=== PATIENT | male | born 1970 | race Caucasian/White ===

== ENCOUNTER 2018-04-24 18:55 | Emergency (ER) | payer SELFPAY ==
[2018-04-24 19:00] VITALS: BP 135/107
[2018-04-24] MEDS ORDERED: RINGERS SOLUTION,LACTATED 1,000 ML IV ONE (19:22)
[2018-04-24] MEDS ORDERED: NORMAL SALINE 1000 ML 1,000 ML IV PRN ×2 (19:22→22:13)
[2018-04-24] MEDS ORDERED: ONDANSETRON HCL INJ/PF 4 MG/2 ML SDV IV ONE (19:25)
--- NOTE | 2018-04-24 19:25 | ER Document Report ---
ED Medical Screen (RME) - General Chief Complaint: Pain All Over Stated Complaint: BODY CRAMPING Time Seen by Provider: 04/24/18 19:17 Notes: 47 years old male was working the whole day out in the sun sweating, drank only 2 times, towards the end of the work started having nausea vomited once all the fluid that he drank. Developed diffuse muscle aches and cramps shivering therefore came to the ED. Denies any dizziness denies any focal weakness. Denies any chest pain or shortness of breath. Diffuse abdominal cramp but denies any diarrhea dysuria frequency. TRAVEL OUTSIDE OF THE [place] IN LAST 30 DAYS: No - Related Data Allergies/Adverse Reactions: No Known Allergies Allergy (Unverified 04/24/18 18:57) Physical Exam - Vital signs Vitals: Temp Pulse Resp BP Pulse Ox 98.2 F 82 20 135/107 H 99 04/24/18 18:58 04/24/18 18:58 04/24/18 18:58 04/24/18 18:58 04/24/18 18:58 Course - Vital Signs Vital signs: Temp Pulse Resp BP Pulse Ox 98.2 F 82 20 135/107 H 99 04/24/18 18:58 04/24/18 18:58 04/24/18 18:58 04/24/18 18:58 04/24/18 18:58 Doctor's Discharge - Discharge Referrals: LOCALMD,NO [Primary Care Provider] - Follow up as needed
[2018-04-24 19:49] LABS: ABSOLUTE BASOPHILS # (AUTO) 0.1 10^3/uL (0.0-0.2); ABSOLUTE EOSINOPHILS # (AUTO) 0.1 10^3/uL (0.0-0.6); ABSOLUTE LYMPHOCYTES (AUTO) 2.6 10^3/uL (0.5-4.7); ABSOLUTE NEUT (AUTO) 11.7 10^3/uL (1.7-8.2); EOSINOPHILS % (AUTO) 0.4 % (0-6); HEMOGLOBIN 18.3 g/dL (13.5-17.0); LYMPHOCYTES % (AUTO) 16.9 % (13-45); MEAN CORPUSCULAR HEMOGLOBIN 32.6 pg (27.0-33.4); MEAN CORPUSCULAR HGB CONC 35.8 g/dL (32.0-36.0); MEAN CORPUSCULAR VOLUME 91 fl (80-97); MONOCYTES % (AUTO) 6.3 % (3-13); PLATELET COUNT 230 10^3/uL (150-450); RED CELL DISTRIBUTION WIDTH 13.2 % (11.5-14.0); SEGMENTED NEUTROPHILS % (AUTO) 75.4 % (42-78); TOTAL CELLS COUNTED % (AUTO) 100 %; WHITE BLOOD COUNT 15.5 10^3/uL (4.0-10.5)
[2018-04-24] MEDS ORDERED: KETOROLAC TROMETHAMINE INJ/PF 30 MG/1 ML SDV IV ONE (20:05)
[2018-04-24] MEDS ORDERED: FENTANYL CITRATE INJ/PF 100 MCG/2 ML AMPUL IV ONE (20:06)
[2018-04-24 20:13] LABS: ALANINE AMINOTRANSFERASE 30 U/L (21-72); ALKALINE PHOSPHATASE 102 U/L (38-126); ASPARTATE AMINO TRANSFERASE 49 U/L (17-59); BILIRUBIN,DIRECT 0.4 mg/dL (0.0-0.4); BILIRUBIN,TOTAL 1.2 mg/dL (0.2-1.3); BLOOD UREA NITROGEN 31 mg/dL (7-20); CHLORIDE 98 mmol/L (98-107); CREATINE KINASE 356 U/L (55-170); GLUCOSE 99 mg/dL (75-110); POTASSIUM 4.9 mmol/L (3.6-5.0); TOTAL PROTEIN 9.9 g/dL (6.3-8.2)
[2018-04-24 20:18] LABS: CARBON DIOXIDE 21 mmol/L (22-30); SODIUM 140.7 mmol/L (137-145)
[2018-04-24 20:25] LABS: ANION GAP 22 (5-19); CALCIUM 12.4 mg/dL (8.4-10.2)
--- NOTE | 2018-04-24 22:10 | ER Document Report ---
ED GI/ - General Mode of Arrival: Ambulatory Information source: Patient TRAVEL OUTSIDE OF THE [place] IN LAST 30 DAYS: No <JADA SAMSON - Last Filed: 04/25/18 00:31> <LENORA BLAIR - Last Filed: 04/25/18 01:29> - General Chief Complaint: Pain All Over Stated Complaint: BODY CRAMPING Time Seen by Provider: 04/24/18 19:17 Notes: 47-year-old male presenting to the emergency department today with complaints of diffuse abdominal cramping with nausea and vomiting. Patient states he worked outside in the heat all day today and only stopped to rehydrate twice. Patient states throughout the he only stopped to urinate twice and they were "tiny amounts". Patient believes he is dehydrated. (JADA SAMSON) - Related Data Allergies/Adverse Reactions: No Known Allergies Allergy (Unverified 04/24/18 18:57) Past Medical History - General Information source: Patient - Social History Smoking Status: Never Smoker Cigarette use (# per day): No Chew tobacco use (# tins/day): No Frequency of alcohol use: None Drug Abuse: Marijuana Lives with: Family Family History: Reviewed & Not Pertinent Patient has suicidal ideation: No Patient has homicidal ideation: No Past Surgical History: Reports: Hx Orthopedic Surgery <JADA SAMSON - Last Filed: 04/25/18 00:31> Review of Systems - Review of Systems Constitutional: No symptoms reported EENT: No symptoms reported Cardiovascular: No symptoms reported Respiratory: No symptoms reported Gastrointestinal: See HPI, Nausea, Vomiting, Other - abdominal cramping Genitourinary: No symptoms reported Male Genitourinary: No symptoms reported Musculoskeletal: No symptoms reported Skin: No symptoms reported Hematologic/Lymphatic: No symptoms reported Neurological/Psychological: No symptoms reported -: Yes All other systems reviewed and negative <JADA SAMSON - Last Filed: 04/25/18 00:31> - Vital signs Vitals: Temp Pulse Resp BP Pulse Ox 98.2 F 82 20 135/107 H 99 04/24/18 18:58 04/24/18 18:58 04/24/18 18:58 04/24/18 18:58 04/24/18 18:58 Course - Laboratory Result Diagrams: 04/24/18 19:30 04/24/18 19:30 <JADA SAMSON - Last Filed: 04/25/18 00:31> - Laboratory Result Diagrams: 04/24/18 19:30 04/24/18 19:30 <ROSSYBINDULENORA - Last Filed: 04/25/18 01:29> - Vital Signs Vital signs: Temp Pulse Resp BP Pulse Ox 98.2 F 82 20 135/107 H 99 04/24/18 18:58 04/24/18 18:58 04/24/18 18:58 04/24/18 18:58 04/24/18 18:58 - Laboratory Laboratory results interpreted by me: 04/24/18 04/24/18 04/24/18 19:30 19:30 21:36 WBC 15.5 H RBC 5.60 H Hgb 18.3 H Absolute Neutrophils 11.7 H Carbon Dioxide 21 L Anion Gap 22 H BUN 31 H Creatinine 2.46 H Est GFR ( Amer) 34 L Est GFR (Non-Af Amer) 28 L Calcium 12.4 H* Creatine Kinase 356 H Total Protein 9.9 H Albumin 6.0 H Urine Protein 30 H Urine Ketones TRACE H Urine Blood SMALL H Urine Urobilinogen 2.0 H Discharge <JADA SAMSON - Last Filed: 04/25/18 00:31> <LENORA BLAIR - Last Filed: 04/25/18 01:29> - Discharge Clinical Impression: Dehydration, Muscle cramps, Hypercalcemia Heat exhaustion Qualifiers: Encounter type: initial encounter Qualified Code(s): T67.5XXA - Heat exhaustion , unspecified, initial encounter Acute renal failure Qualifiers: Acute renal failure type: unspecified Qualified Code(s): N17.9 - Acute kidney failure, unspecified GERD (gastroesophageal reflux disease) Qualifiers: Esophagitis presence: esophagitis presence not specified Qualified Code(s): K21.9 - Gastro-esophageal reflux disease without esophagitis Condition: Stable Disposition: HOME, SELF-CARE Additional Instructions: You suffered heat exhaustion today from not drinking enough water. This caused her kidneys to start shutting down. You also are suffering from gastroesophageal reflux disease also known as GERD. One unexpected abnormality was an elevated calcium level. This can be due to parathyroid hormone problems. For the weekend you should drink plenty of water throughout the day and the evening even if that means having to get up during the night to urinate. This is critically important to helping your kidney function returned to normal. You should avoid spicy foods. Take antacids between meals and at bedtime. Elevate head of your bed. Take Prilosec OTC once daily. Follow-up with a local medical doctor Friday to repeat your lab tests and take copies of the lab work from [facility] with you. RETURN TO THE EMERGENCY ROOM IF ANY NEW OR WORSENING SYMPTOMS. Referrals: LOCALMD,NO [NO LOCAL MD] - Follow up as needed Scribe Attestation: 04/24/18 22:42 I personally performed the services described in the documentation, reviewed and edited the documentation which was dictated to the scribe in my presence, and it accurately records my words and actions. (LENORA BLAIR) Scribe Documentation - Scribe Written by Yesyibe:: Carmina Lyons, 04/25/2018 [id number] acting as scribe for :: Rossy <JADA SAMSON - Last Filed: 04/25/18 00:31>
[2018-04-24] MEDS ORDERED: MAG HYDROX/AL HYDROX/SIMETH SUSP 30 ML UDCUP PO ONE (22:13)
[2018-04-24] MEDS ORDERED: LIDOCAINE 2% VISCOUS SOLN 20 ML UDCUP PO ONE (22:13)
[2018-04-25 00:04] LABS: APPEARANCE,URINE SLIGHTLY-CLOUDY; BILIRUBIN,URINE NEGATIVE (NEGATIVE); CALCIUM OXALATE CRYSTALS,URINE RARE /HPF; COLOR,URINE YELLOW; GLUCOSE, URINE NEGATIVE (NEGATIVE); KETONES,URINE TRACE mg/dL (NEGATIVE); LEUKOCYTE ESTERASE,URINE NEGATIVE (NEGATIVE); NITRITE,URINE NEGATIVE (NEGATIVE); PROTEIN,URINE 30 mg/dL (NEGATIVE); URINE SPECIFIC GRAVITY 1.021
== END 2018-04-25 02:35 | disposition home or self-care (01) ==
LOC: ER 18:55
DX: T67.5XXA Heat exhaustion, unspecified, initial encounter (principal); X30.XXXA Exposure to excessive natural heat, initial encounter; E86.0 Dehydration; R10.84 Generalized abdominal pain; R11.2 Nausea with vomiting, unspecified
CPT/HCPCS: 99284; 96361; 96375; 96365; 36415; 82550; 85025; 80053; 81001; 84484; 83605; J3010; J3490; J1885; J2405; J7030; J7120